=== PATIENT | female | born 1980 | race Caucasian/White ===

== ENCOUNTER → 2021-07-16 | Outpatient (CLI) | payer BC ==
--- NOTE | 2021-07-17 16:32 | KCIC ---
Bilateral digital screening mammograms: Reason for examination: Routine screening. Comparison is made to previous study dated 04/06/2012. Interpretation was made with the benefit of CAD. Findings: Breast density: On category B. There are scattered areas of fibroglandular density.. There is a developing focal asymmetry in the 1:00 position of the right breast at posterior depth. No other dominant breast mass is seen. There are no suspicious calcifications or architectural distorti ons. Impression: Abnormal mammogram with developing focal asymmetry in the 1:00 position of the right breast at patient services coordinator ior depth. Further evaluation with a diagnostic right mammogram, including 3-D mediolateral and CC vi ews is recommended. Targeted right breast ultrasound, including the axilla is recommended. BI-RADS Category 0. Incomplete. Additional imaging is recommended. Recommendations: Diagnostic right 3-D mammogram. Targeted right breast ultrasound. This patient's information has been entered into a reminder system for the patient to be notified wit h the results of her examination and a target date for the next mammogram. Electronically signed by: Stacey Miner MD (07/17/2021 4:29 PM) [id number]
== END ==
LOC: KCIC MAMMO 15:39
PROVIDERS: ATTEND Obstetrics & Gynecology
DX: Z12.31 Encounter for screening mammogram for malignant neoplasm of breast (principal)
CPT/HCPCS: 77067

== ENCOUNTER → 2021-07-30 | Outpatient (CLI) | payer BC ==
--- NOTE | 2021-07-30 14:20 | KCIC ---
Right breast diagnostic digital mammograms: Reason for examination: Asymmetry on screening mammogram. Comparison is made to mammographic exams dated 07/17/2021 and 04/06/2012. Coned compression views were obtained in CC and lateral projections. Parenchymal asymmetries are present in the 2:00 C position of the right breast. No associated calcifi cations are present. IMPRESSION: Parenchymal asymmetry persists at the 2:00 C position of the right breast. Ultrasound to follow. BI-RADS Category 0: Incomplete. Needs additional imaging evaluation. Right breast ultrasound: Ultrasound examination of the right breast and axilla was performed. At the 2:00 position 8 cm from the nipple, there is a heterogeneous area of echogenicity measuring ap proximately 2.5 cm in greatest dimension. This shows some posterior acoustic shadowing. This would co rrespond with the area of mammographic concern. Further evaluation with ultrasound-guided biopsy is r ecommended. No abnormal appearing lymph nodes are seen in the right axilla. IMPRESSION: Heterogeneous area of abnormal echogenicity at the 2:00 position 8 cm from the nipple. Recommend furt her evaluation with ultrasound-guided biopsy or stereotactic biopsy of the asymmetric density. BI-RADS Category 4: Suspicious. These findings were discussed with the patient and the nurse, Jaycee, at the office of Dr. Brian frank was notified about these findings by myself on 07/30/2021 2:15 PM. "Our facility is accredited by the [employer] Mammography [employer]." This patient's information has been entered into a reminder system for the patient to be notified wit h the results of her examination and a target date for the next mammogram. Electronically signed by: Roxanne Samuel MD (07/30/2021 2:17 PM) [email or web address]
== END ==
LOC: KCIC MAMMO 12:58
PROVIDERS: ATTEND Obstetrics & Gynecology
DX: N65.1 Disproportion of reconstructed breast (principal)
CPT/HCPCS: 76641; 77065

== ENCOUNTER → 2021-08-17 | Outpatient (CLI) | payer BC ==
[~2021-08-17] MED LIST: LIDOCAINE 2%/EPI 1:100,000 20 ML VIAL. INJ ONE
--- NOTE | 2021-08-17 13:53 | RAD ---
EXAM: Sonographic guided right breast biopsy; right breast biopsy clip placement; right breast postbi opsy mammogram. HISTORY: 41-year-old female presents for sonographic guided biopsy of an ill-defined hypoechoic lesio n within the right breast at the 2:00 position 8 cm from the nipple. This is felt to correspond with a region of mammographic asymmetry. TECHNIQUE: The risks of the procedure discussed with the patient and written informed consent was obt ained. A timeout was performed. Sonographic imaging of the right breast was performed and a finding o f concern at the 2:00 position was identified. The skin overlying this location was sterilely prepped , draped and infiltrated with 1 percent lidocaine. Multiple core samples were obtained through the le amy of concern and biopsy clip was advanced into the biopsy bed. Manual compression was maintained u ntil hemostasis achieved. A sterile bandage was placed. A post biopsy mammogram demonstrates the biop sy clip in expected position. This corresponds with the previously demonstrated mammographic asymmetr y of concern. The patient tolerated the procedure without difficulty and was discharged in stable con dition. IMPRESSION: Successful sonographic guided biopsy of an ill-defined hypoechoic lesion corresponding wi th mammographic asymmetry at the 2:00 position of the right breast 8 cm from the nipple. An addendum to this report will be submitted when pathology results are available. Electronically signed by: Sofia Mcgee MD (08/17/2021 1:51 PM) [id number]
== END | disposition home or self-care (01) ==
LOC: MAMMO 12:00
PROVIDERS: ATTEND Obstetrics & Gynecology
DX: N63.12 Unspecified lump in the right breast, upper inner quadrant (principal); R92.8 Other abnormal and inconclusive findings on diagnostic imaging of breast
CPT/HCPCS: 19083; 77065; A4648; C1819; 88305